=== PATIENT | female | born 1965 ===

== ENCOUNTER 2023-11-27 09:18 | Outpatient (CLI) | payer OTHER, SELFPAY ==
--- NOTE | 2023-12-14 15:19 | WPDHOMESLEEP ---
Sleep Study - Home Unattended Date of Study: 11/27/23 Ordering Provider: Lulu Lehman, PANahomi Interpreting Provider: Bryanna Church, DO Home Sleep Study Type: Watch PAT Height: 1.7 m Weight: 68.039 kg Body Mass Index: 23.5 Neck Circumference (inches): 12.75 [place]: 8 Reason for Sleep Study snoring Sleep History The patient is a 58-year-old female that had a sleep study ordered by her primary care for evaluation of sleep apnea. The patient frequently snores and is frequently loud enough that others complain. She denies having trouble sleeping when she has a cold. She denies waking up gasping for air throughout the night. She denies having breathing problems at night observed by herself or others. She occasionally sweats excessively at night. She denies having heart palpitations or irregular heartbeats during the night. She denies falling asleep during the day and while driving. She denies sleep paralysis, cataplexy and hypnagogic / hypnopompic hallucinations. She denies having trouble at school or work due to sleepiness. She denies feeling afraid of going to sleep. She denies having nightmares. She occasionally remembers her dreams. She denies having thoughts racing through her mind. She occasionally feels sad or depressed. She rarely has anxiety. She denies having muscular tension. She denies noticing parts of her body jerk. She denies kicking during the night. She denies having crawling and aching feelings in her legs and denies having leg pain during the night. She constantly grinds her teeth during sleep but never awakens with morning jaw pain. She denies being bothered by pain during the day and denies being awakened by pain during the night. She denies waking up feeling stiff in the morning. She denies waking up with sore or achy muscles. She denies waking up with pain in the neck with spine and other joints. She goes to bed at 10:00 p.m. on both weekdays and weekends. It takes her 1 minute to fall asleep. She wakes up several times throughout the night for unknown reasons but is able fall back asleep relatively quickly. She wakes up at 5:00 a.m. on weekdays and 6:00 a.m. on the weekends. She typically gets 8 hours of sleep per night. She does not stay in bed after waking up in the morning. She currently lives alone.She denies consuming any caffeinated beverages within 2 hours of bedtime. She will engage in physical exercise before bedtime. She will read before falling asleep. She denies watching television before falling asleep. She will take naps in the afternoon or the evening on the weekends. The naps are refreshing. Se denies consuming any caffeinated beverages throughout the day. She denies tobacco, alcohol and recreational drug use. Sleep Procedure The sleep study was completed using CupointT a technically adequate device with seven channels: peripheral arterial tone, actigraphy, body position, snore, respiratory movement, pulse oximetry, sleep staging, and heart rate. Prior to using the device, the patient received verbal and written instructions for its application and was provided with the help desk phone number for additional telephonic instruction with 24-hour availability of qualified personnel to answer questions. The study was scored using CMS guidelines. Sleep Architecture The total recording time is 7 hrs, 33 min. The total sleep time is 6 hrs, 35 min. Sleep latency is 6 minutes. REM latency is 70 minutes. The patient had 11 episodes of waking. Sleep architecture shows 9.0% deep sleep, 73.3% light sleep, and (as % Total Sleep Time) showed NREM (Light 73.3%; Deep 9.0%), and a 17.7% stage REM. The patient spent 29.6% of total sleep time in the supine position. Sleep efficiency was 87.20%. Respiratory Analysis The overall AHI (pAHI 4%:) is 5.2. The central AHI is 0.0. The AHI was 5.6 in NREM and 3.5 in REM sleep. The AHI was 13.5 in Supine and 1.7 in Non-supine sleep. Percent of Gagan Machuca
[2023-12-14 15:20] VITALS: BMI 23.5
== END 2023-11-28 07:00 | disposition home or self-care (01) ==
LOC: ANHCSM 09:21
PROVIDERS: PCP Physician Assistant; Visit Provider Physician Assistant
DX: G47.9 Sleep disorder, unspecified (principal); G47.33 Obstructive sleep apnea (adult) (pediatric)
CPT/HCPCS: 95800